=== PATIENT | male | born 1990 | race Caucasian/White ===

== ENCOUNTER 2016-10-25 03:58 | Emergency (ER) | payer OTHER ==
[2016-10-25] MEDS ORDERED: NS 0.9% 1000 ML* 1,000 ML IV ONE (04:21)
[2016-10-25] MEDS ORDERED: Ondansetron INJ* 2 MG/ML VIAL IV ONE (04:23)
[2016-10-25 04:38] LABS: Hematocrit 44 % (42-52); Hemoglobin 14.9 g/dl (14.0-18.0); Mean Corpuscular HGB Conc 34 g/dl (31-36); Mean Corpuscular Hemoglobin 28 pg (27-31); Mean Corpuscular Volume 83 fL (80-94); Mean Platelet Volume 9 um3 (7.4-10.4); Red Blood Count 5.28 10^6/ul (4.0-5.4); Red Cell Distribution Width 13 % (10.5-15); White Blood Count 11.6 10^3/ul (3.5-10.8)
[2016-10-25 05:12] LABS: Albumin 4.3 g/dL (3.2-5.2); BUN/Creatinine Ratio 13.6 (8-20); Calcium 9.1 mg/dL (8.6-10.3); EGFR African American 134.6 (>60); EGFR Non-African American 104.7 (>60); Globulin 2.7 g/dL (2-4); Potassium 3.4 mmol/L (3.5-5.0); Total Bilirubin 0.5 mg/dL (0.2-1.0)
--- NOTE | 2016-10-25 05:47 | ED ---
Myranda Lipscomb Rebecca, scribed for Salvador Marroquin MD on 10/25/16 at 0420 . Substance Abuse/Use - HPI Summary HPI Summary: Pt is a 26 y/o M BIBA who comes ot ED p/w N/V and EtOH intoxication. Pt presents s/p EtOH and marijuana use tonight. Pt is unsure of how much EtOH was ingested, stating "quite a bit tonight" when asked. Sx aggravated by movement, alleviated by nothing. Denies abdominal pain. - History Of Current Complaint Stated Complaint: VOMITING Time Seen by Provider: 10/25/16 04:13 Hx Obtained From: Patient Ingestion History: Type/Name Of Drug - EtOH, marijuana Overdose Characteristics: Oral Severity Initially: Moderate Severity Currently: Moderate Character: Other - Vomiting Aggravating Factor(s): Other - Movement Alleviating Factor(s): Nothing - Allergies/Home Medications Allergies/Adverse Reactions: Allergies Allergy/AdvReac Type Severity Reaction Status Date / Time No Known Allergies Allergy Verified 10/25/16 04:46 PMH/Surg Hx/FS Hx/Imm Hx Endocrine/Hematology History: Denies: Hx Diabetes GI History: Reports: Hx Gastroesophageal Reflux Disease Infectious Disease History: Reports: Traveled Outside the in Last 30 Days - [place] - Family History Known Family History: Negative: Diabetes - Social History Lives: With Family Substance Use Type: Reports: Marijuana Smoking Status (MU): Never Smoked Tobacco Review of Systems Positive: Vomiting, Nausea. Negative: Abdominal Pain Positive: Other - EtOH intoxication All Other Systems Reviewed And Are Negative: Yes Physical Exam - Summary Physical Exam Summary: The patient is intoxicated and appears ill. The skin is warm and dry. Sunburn on his back which is not blistering. HEENT: The pupils are equal and reactive. The conjunctivae are clear and without drainage. Nares are patent and without drainage. Mouth reveals moist mucous membranes and the throat is without erythema and exudate. The external ears are intact. The ear canals are patent and without drainage. The tympanic membranes are intact. Respiratory: Chest is non-tender. Lungs are clear to auscultation and breath sounds are symmetrical and equal. Cardiovascular: Hear is regular rate and rhythm. There is no murmur or rub auscultated. There is no peripheral edema and pulses are symmetrical and equal. Good pulses distally. Abdomen: The abdomen is soft and non-tender. Musculoskeletal: There is no back pain noted. Extremities are non-tender with full range of motion. There is good capillary refill. There is no peripheral edema or calf tenderness elicited. Neurological: Patient is alert and oriented to person, place and time. The patient has symmetrical motor strength in all four extremities. Psychiatric: The patient follows commands. Triage Information Reviewed: Yes Vital Signs On Initial Exam: Initial Vitals Temp Pulse Resp BP 96.7 F 99 22 128/72 10/25/16 04:00 10/25/16 04:00 10/25/16 04:00 10/25/16 04:00 Vital Signs Reviewed: Yes Diagnostics - Vital Signs Vital Signs Temp Pulse Resp BP Pulse Ox 10/25/16 04:25 96.7 F 68 22 127/70 95 10/25/16 04:00 96.7 F 99 22 128/72 - Laboratory Lab Results: Lab Results 10/25/16 10/25/16 Range/Units 04:18 04:18 WBC 11.6 H (3.5-10.8) 10^3/ul RBC 5.28 (4.0-5.4) 10^6/ul Hgb 14.9 (14.0-18.0) g/dl Hct 44 (42-52) % MCV 83 (80-94) fL MCH 28 (27-31) pg MCHC 34 (31-36) g/dl RDW 13 (10.5-15) % Plt Count 177 (150-450) 10^3/ul MPV 9 (7.4-10.4) um3 Neut % (Auto) 50.1 (38-83) % Lymph % (Auto) 42.1 (25-47) % [place] % (Auto) 6.8 (1-9) % Eos % (Auto) 0.4 (0-6) % Baso % (Auto) 0.6 (0-2) % Absolute Neuts (auto) 5.8 (1.5-7.7) 10^3/ul Absolute Lymphs (auto) 4.9 H (1.0-4.8) 10^3/ul Absolute Monos (auto) 0.8 (0-0.8) 10^3/ul Absolute Eos (auto) 0 (0-0.6) 10^3/ul Absolute Basos (auto) 0.1 (0-0.2) 10^3/ul Absolute Nucleated RBC 0 10^3/ul Nucleated RBC % 0 Sodium 136 (133-145) mmol/L Potassium 3.4 L (3.5-5.0) mmol/L Chloride 103 (101-111) mmol/L Carbon Dioxide 22 (22-32) mmol/L Anion Gap 11 (2-11) mmol/L BUN 12 (6-24) mg/dL Creatinine 0.88 (0.67-1.17) mg/dL Est GFR ( Amer) 134.6 (>60) Est GFR (Non-Af Amer) 104.7 (>60) BUN/Creatinine Ratio 13.6 (8-20) Glucose 158 H (70-100) mg/dL Calcium 9.1 (8.6-10.3) mg/dL Total Bilirubin 0.50 (0.2-1.0) mg/dL AST 23 (13-39) U/L ALT 19 (7-52) U/L Alkaline Phosphatase 63 (34-104) U/L Total Creatine Kinase 208 (10-223) U/L Total Protein 7.0 (6.4-8.9) g/dL Albumin 4.3 (3.2-5.2) g/dL Globulin 2.7 (2-4) g/dL Albumin/Globulin Ratio 1.6 (1-3) Serum Alcohol 96 H (<10) mg/dL Result Diagrams: 10/25/16 04:18 10/25/16 04:18 Lab Statement: Any lab studies that have been ordered have been reviewed, and results considered in the medical decision making process. Re-Evaluation - Re-Evaluation First Eval Re-Evaluation Time: 05:41 Change: Unchanged Comment: Pt continues to c/o nausea and does not feel well. Course/Dx - Course Assessment/Plan: Pt is a 26 y/o M BIBA who comes to ED p/w N/V and EtOH intoxication. Reports EtOH and marijuana use tonight, unsure of amount for both. Denies abdominal pain. Serum alcohol 96. Pt administered Ns and Zofran IV in the course of the ED. - Diagnoses Differential Diagnosis/HQI/PQRI: Positive: Alcohol Abuse, Other - adverse reaction to marijuana, dehydration Provider Diagnoses: Acute alcohol intoxication, Adverse reaction to cannabis, Dehydration Discharge - Discharge Plan Condition: Stable Disposition: HOME Patient Education Materials: Dehydration (ED), Alcohol Intoxication (ED) Referrals: Non Staff,Doctor [Primary Care Provider] - 3 Days The documentation as recorded by the Myranda [email or web address] Rebecca accurately reflects the service I personally performed and the decisions made by me, Salvador Marroquin MD.
[2016-10-25] MEDS ORDERED: Potassium Chlor TAB* 20 MEQ TAB.ER PO ONE (07:40)
[2016-10-25 09:19] LABS: Urine Bilirubin Negative (Negative); Urine Glucose Negative (Negative); Urine Nitrite Negative (Negative)
[2016-10-25 09:28] VITALS: BP 127/85
[2016-10-25 09:53] LABS: Benzodiazepine Urine Screen None Detected (None Detect)
== END 2016-10-25 09:24 | disposition home or self-care (01) ==
LOC: ED 03:58
DX: F10.129 Alcohol abuse with intoxication, unspecified (principal); F12.90 Cannabis use, unspecified, uncomplicated; Y90.4 Blood alcohol level of 80-99 mg/100 ml; E86.0 Dehydration; K21.9 Gastro-esophageal reflux disease without esophagitis
CPT/HCPCS: 36415; 80053; 80307; 80320; 81003; 82550; 85025; 96361; 96374; 99283; A9270-GY; G0480; J2405